=== PATIENT | male | born 1960 | race African-American/Black ===

== ENCOUNTER → 2018-09-24 | Outpatient (CLI) | payer BC, OTHER ==
[2014-10-17 18:42] VITALS: BP 158/77
--- NOTE | 2018-09-24 16:42 | RAD ---
Indication:RT TESTICLE ENLARGEMENT TECHNIQUE: Grayscale, color Doppler and spectral waveform is of the testicles obtained. COMPARISON:None FINDINGS: The right testicle measures 4.0 x 2.5 x 2.3 cm and is homogeneous in echogenicity without focal lesion. The right testicle demonstrates evidence of blood flow. The epididymis is within normal limits. Varicoceles are seen. The left testicle measures 4.0 x 2.6 x 2.5 cm and is homogeneous in echogenicity without focal lesion. The left testicle demonstrates evidence of blood flow. Epididymis within normal limits. Small bilateral hydroceles. IMPRESSION: IMPRESSION: 1. Bilateral testicles demonstrate evidence of blood flow without focal testicular lesion. 2. Right-sided varicoceles. 3. Small bilateral hydroceles, right greater than left. Electronically signed by: Gustabo Birch DO (09/24/2018 4:39 PM) [facility]
== END | disposition home or self-care (01) ==
LOC: US 15:52
PROVIDERS: ATTEND Internal Medicine
DX: N43.3 Hydrocele, unspecified (principal); I86.1 Scrotal varices; E11.42 Type 2 diabetes mellitus with diabetic polyneuropathy
CPT/HCPCS: 76870

== ENCOUNTER 2019-05-30 18:43 | Emergency (ER) | payer BC, MEDICAID ==
[~2019-05-30] VITALS: Ht 175.3 cm; Wt 136.1 kg
--- NOTE | 2019-05-30 19:48 | PHYS DOC ---
Past Medical History Past Medical History: Diabetes-Type II, Diverticulitis, Diverticulosis, High Cholesterol, Hypertension, Other Additional Past Medical Histor: OBESE Past Surgical History: Knee Replacement, Other Additional Past Surgical Histo: BILAT KNEE, COLOSTOMY W/ TAKEDOWN Alcohol Use: None Drug Use: None Adult General Chief Complaint Chief Complaint: LOWER EXTREMITY SWELLING HPI HPI 58-year-old male presents to the emergency room complaints of right lower extremity wound. Patient is an known diabetic, hypertensive with previous history of right lower extremity wound receiving wound care as an outpatient with subsequently improved. He states approximately 1 week ago he went to get a pedicure and the skin was rubbed off to the back of his leg he's noticed some weeping from the ulceration patient denies any fevers. He denies any chest pain, shortness breath, nausea, vomiting, abdominal pain. He called his primary care office the nursing office told him he needed to come to the hospital for further evaluation before they would send home health out. Review of Systems Review of Systems Constitutional: Denies fever or chills [] Respiratory: Denies cough or shortness of breath [] Cardiovascular: No additional information not addressed in HPI [] GI: Denies abdominal pain, nausea, vomiting, bloody stools or diarrhea [] Musculoskeletal: Denies back pain or joint pain [] Integument: Tenderness centimeter laceration appreciated to back of right calf, yellow drainage appreciated. Neurologic: Denies headache, focal weakness or sensory changes [] All other systems were reviewed and found to be within normal limits, except as documented in this note. Allergies Allergies Allergies Coded Allergies Type Severity Reaction Last Updated Verified No Known Drug Allergies 10/17/14 No Physical Exam Physical Exam Constitutional: Well developed, well nourished, no acute distress, non-toxic appearance. [] HENT: Normocephalic, atraumatic, bilateral external ears normal, oropharynx moist, no oral exudates, nose normal. [] Eyes: PERRLA, EOMI, conjunctiva normal, no discharge. [] Cardiovascular:Heart rate regular rhythm, no murmur [] Lungs & Thorax: Bilateral breath sounds clear to auscultation [] Abdomen: Bowel sounds normal, soft, no tenderness, no masses, no pulsatile masses. [] Skin: 2.5 cm ulceration appreciated to back of right calf, minimal yellow drainage appreciated, chronic lower extremity edema with chronic venous stasis changes Back: No tenderness, no CVA tenderness. [] Extremities: Chronic lower extremity edema, chronic venous stasis changes, ulceration as described above.[] Neurologic: Alert and oriented X 3, no focal deficits noted. [] Psychologic: Affect normal, judgement normal, mood normal. [] Current Patient Data Vital Signs Vital Signs Date Time Temp Pulse Resp B/P (MAP) Pulse Ox O2 Delivery O2 Flow Rate FiO2 05/30/19 19:35 98.0 87 20 152/85 (107) 91 Room Air 98.0 Lab Values Laboratory Tests Test 05/30/19 19:52 White Blood Count 10.3 x10^3/uL (4.0-11.0) Red Blood Count 4.60 x10^6/uL (4.30-5.70) Hemoglobin 12.6 g/dL (13.0-17.5) L Hematocrit 38.3 % (39.0-53.0) L Mean Corpuscular Volume 83 fL (79-100) Mean Corpuscular Hemoglobin 27 pg (25-35) Mean Corpuscular Hemoglobin Concent 33 g/dL (31-37) Red Cell Distribution Width 15.5 % (11.5-14.5) H Platelet Count 276 x10^3/uL (140-400) Neutrophils (%) (Auto) 68 % (31-73) Lymphocytes (%) (Auto) 20 % (24-48) L Monocytes (%) (Auto) 8 % (0-9) Eosinophils (%) (Auto) 4 % (0-3) H Basophils (%) (Auto) 1 % (0-3) Neutrophils # (Auto) 7.0 x10^3/uL (1.8-7.7) Lymphocytes # (Auto) 2.0 x10^3/uL (1.0-4.8) Monocytes # (Auto) 0.8 x10^3/uL (0.0-1.1) Eosinophils # (Auto) 0.4 x10^3/uL (0.0-0.7) Basophils # (Auto) 0.1 x10^3/uL (0.0-0.2) Sodium Level 143 mmol/L (136-145) Potassium Level 3.9 mmol/L (3.5-5.1) Chloride Level 104 mmol/L (98-107) Carbon Dioxide Level 33 mmol/L (21-32) H Anion Gap 6 (6-14) Blood Urea Nitrogen 22 mg/dL (8-26) Creatinine 2.5 mg/dL (0.7-1.3) H Estimated GFR (Cockcroft-Gault) 32.0 BUN/Creatinine Ratio 9 (6-20) Glucose Level 125 mg/dL (70-99) H Calcium Level 8.8 mg/dL (8.5-10.1) Total Bilirubin 0.3 mg/dL (0.2-1.0) Aspartate Amino Transferase (AST) 17 U/L (15-37) Alanine Aminotransferase (ALT) 18 U/L (16-63) Alkaline Phosphatase 118 U/L (46-116) H Total Protein 8.8 g/dL (6.4-8.2) H Albumin 3.1 g/dL (3.4-5.0) L Albumin/Globulin Ratio 0.5 (1.0-1.7) L Laboratory Tests 05/30/19 19:52 Laboratory Tests 05/30/19 19:52 EKG EKG [] Radiology/Procedures Radiology/Procedures [] Course & Med Decision Making Course & Med Decision Making Pertinent Labs and Imaging studies reviewed. (See chart for details) []58-year-old male presents to the emergency room complaints of right lower extremity wound. Patient is an known diabetic, hypertensive with previous history of right lower extremity wound receiving wound care as an outpatient with subsequently improved. He states approximately 1 week ago he went to get a pedicure and the skin was rubbed off to the back of his leg he's noticed some weeping from the ulceration patient denies any fevers. He denies any chest pain, shortness breath, nausea, vomiting, abdominal pain. He called his primary care office the nursing office told him he needed to come to the hospital for further evaluation before they would send home health out. Laboratory values reviewed creatinine mildly elevated at 2.5 no previous findings in the computer system. His BUN within normal limits. Patient likely has underlying chronic kidney disease given his history of hyper tension, hyperlipidemia, diabetes - potassium normal Ulceration appreciated to right lower extremity is noninfectious at this time, dressing reapplied in the emergency department will plan for home health will need to follow up primary care physician as discussed below Plan discharge home and follow up with PCP as outpatient as scheduled Discussed return precautions Patient will need to contact PCP for home health referral Rodney Disclaimer Dragon Disclaimer This electronic medical record was generated, in whole or in part, using a voice recognition dictation system. Departure Departure Impression: Primary Impression: Bilateral lower extremity edema Additional Impression: Ulcer of lower extremity Referrals: KAREN YOST MD (PCP) Patient Instructions: Edema, [id number] Additional Instructions: Recommend follow up with PCP 3 - 5 days Return to the ER with worsening symptoms, intractable pain, fever, altered mental status Tylenol/Motrin as needed for pain No evidence of infectious process, recommend no abx at this time Recommend following up with PCP regarding home health need for wound care Problem Qualifiers Additional Impression: Ulcer of lower extremity Laterality: right Non-pressure ulcer stage: limited to breakdown of skin Qualified Codes: L97.911 - Non-pressure chronic ulcer of unspecified part of right lower leg limited to breakdown of skin TOVA CANTU MD May 30, 2019 19:48
[2019-05-30 20:05] LABS: BASO # 0.1 x10^3/uL (0.0-0.2); BASO % 1 % (0-3); EOS # 0.4 x10^3/uL (0.0-0.7); EOS % 4 % (0-3); HEMATOCRIT 38.3 % (39.0-53.0); HEMOGLOBIN 12.6 g/dL (13.0-17.5); LYMPH % 20 % (24-48); MEAN CORPUSCULAR HEMOGLOBIN 27 pg (25-35); MEAN CORPUSCULAR HGB CONC 33 g/dL (31-37); MEAN CORPUSCULAR VOLUME 83 fL (79-100); MONO # 0.8 x10^3/uL (0.0-1.1); MONO % 8 % (0-9); NEUT % 68 % (31-73); PLATELET COUNT 276 x10^3/uL (140-400); RED CELL DISTRIBUTION WIDTH 15.5 % (11.5-14.5); WHITE BLOOD COUNT 10.3 x10^3/uL (4.0-11.0)
[2019-05-30 20:12] LABS: CALCIUM 8.8 mg/dL (8.5-10.1); CREATININE 2.5 mg/dL (0.7-1.3); POTASSIUM 3.9 mmol/L (3.5-5.1)
[2019-05-30 20:19] LABS: ALBUMIN 3.1 g/dL (3.4-5.0); ALBUMIN/GLOBULIN RATIO 0.5 (1.0-1.7); TOTAL BILIRUBIN 0.3 mg/dL (0.2-1.0); TOTAL PROTEIN 8.8 g/dL (6.4-8.2)
[2019-05-30 21:06] VITALS: BP 192/110
== END 2019-05-30 21:07 | disposition home or self-care (01) ==
LOC: ER 18:43
DX: E11.622 Type 2 diabetes mellitus with other skin ulcer (principal); L97.211 Non-pressure chronic ulcer of right calf limited to breakdown of skin; R60.0 Localized edema; E78.00 Pure hypercholesterolemia, unspecified; I10 Essential (primary) hypertension; E66.9 Obesity, unspecified; Z68.41 Body mass index [BMI] 40.0-44.9, adult; Z96.653 Presence of artificial knee joint, bilateral; Z93.3 Colostomy status
CPT/HCPCS: 36415; 80053; 85025; 99284

== ENCOUNTER → 2019-08-18 | Day surgery (SDC) | payer BC, MEDICAID ==
[~2019-08-18] MED LIST: AMLO10TA4 PO; ATOR40TA59 PO; CETI10TA24 PO; FURO-68 PO; GABA800T5 PO; HYDR-2765 PO; INSU100V31 SQ; INSU300I SQ; IV RINGERS,LACTATED 1000ML 1,000 ML IV ONE; LOSA100T14 PO; METO25TA4 PO; POTA10TA12 PO; PROPOFOL 40 ML IV ONE
--- NOTE | 2019-08-18 12:38 | NUR ---
PT HERE IN [facility] FOR COLONOSCOPY. PT SOB ON EXERTION AND NOTED TO HAVE EXPIRATORY WHEEZES ANTERIOR UPPER LOBES MARTHA. SPITTING CLEAR SECRETIONS IN [place]. HE STATED HE IS RECOVERING FROM A COLD THIS LAST WEEK. ANESTHESIA, DR LEPE, NOTIFIED AND NO NEW ORDERS.
--- NOTE | 2019-08-18 13:43 | PDOC4 ---
PROCEDURE Procedure Colonoscopy/multiple polypectomies. Indication: screening Meds: per anesthesia. Findings; OSVALDO normal. --'Scope advanced to cecum. Foreshortened colon from surgery. Mucosa normal. Scattered diverticula from mid-transverse distally. Anastomosis distal sigmoid. --5 semipedunculated polyps, 8-10 mm, from ascending to descending. All snared. Sj. well. IMP: multiple polyps diverticulosis S/p proximal sigmoid resection REC: No ASA, NSAIDS for 2 weeks. Await path. Resume other meds and diet. F/u with me in 2 weeks. Repeat exam in 5 years. TERESA COLES MD Aug 18, 2019 13:43
[2019-08-18 14:02] VITALS: BP 161/92
--- NOTE | 2019-08-20 20:06 | PATHOLOGY ---
[facility] Accession Number: [id number] . 01 Material submitted: . PART A: colon - PROXIMAL ASCENDING COLON POLYP. Modifiers: proximal, ascending PART B: colon - TRANSVERSE COLON POLYP X2. Modifiers: transverse PART C: colon - DESCENDING COLON POLYP X2. Modifiers: descending . 01 Clinical history: . Screening . 02 Diagnosis: A. Colon biopsy, proximal ascending colon polyp: - Tubular adenoma. . B. Colon biopsies, transverse colon polyps x2: - Tubular adenomas (2). . C. Colon biopsies, descending colon polyps x2: - Tubular adenomas (2). . (VERONICAM:spencer; 08/20/2019) [facility] 08/20/2019 [address] [facility] . 02 Comment: There is no high-grade dysplasia or evidence of malignancy. (VERONICAM:spencer; 08/20/2019) . 02 Electronically signed: . Eben Dowell MD, Pathologist NPI- [id number] . 01 Gross description: . A. The specimen is received in formalin, labeled "Tonny Bridges, proximal ascending colon polyp BX" and consists of a polypoid segment of olmos-brown tissue measuring 1.3 x 1.2 x 1.1 cm. The margin is inked black. It is serially sectioned and entirely submitted in A1. . B. The specimen is received in formalin, labeled "Cyrus, Tonny, transverse colon polyp x2" and consists of 2 polypoid segments of olmos-brown tissue measuring 1.2 x 1.2 x 1.0 cm and 1.0 x 0.8 x 0.7 cm. One margin is inked black and the other blue. They are sectioned and entirely submitted in B1-B2. . C. The specimen is received in formalin, labeled "Cyrus, Tonny, descending colon polyp x2" and consists of 4 fragments of pink-olmos tissue measuring between 0.5 x 0.4 cm and 0.7 x 0.6 cm which are entirely submitted in C1. Also received are 2 polypoid segments of olmos-brown tissue measuring 0.8 x 0.7 x 0.6 cm and 0.8 x 0.8 x 0.5 cm. The margins are inked black. They are sectioned and entirely submitted in C2. (SDY; 08/19/2019) SYU/SYU 08/19/2019 1729 Local . 02 Pathologist provided ICD-10: D12.2, D12.3, D12.4 . 02 CPT . 754504, 041855, 119481 Specimen Comment: A courtesy copy of this report has been sent to [phone] Specimen Comment: Report sent to DR YOST Performed at: 01 [facility] [address] [facility] [address], [place] [id number] MD Keshav Leggett MD Phone: [phone] Performed at: 02 [facility] [address] [place], [place] [id number] MD Eben Dowell MD Phone: [phone]
== END | disposition home or self-care (01) ==
LOC: ENDOS 11:57
PROVIDERS: ATTEND Internal Medicine Gastroenterology
DX: Z12.11 Encounter for screening for malignant neoplasm of colon (principal); D12.2 Benign neoplasm of ascending colon; D12.4 Benign neoplasm of descending colon; D12.3 Benign neoplasm of transverse colon; K57.30 Diverticulosis of large intestine without perforation or abscess without bleeding; E66.9 Obesity, unspecified; I12.9 Hypertensive chronic kidney disease with stage 1 through stage 4 chronic kidney disease, or unspecified chronic kidney disease; E11.22 Type 2 diabetes mellitus with diabetic chronic kidney disease; N18.9 Chronic kidney disease, unspecified; I25.10 Atherosclerotic heart disease of native coronary artery without angina pectoris; Z98.890 Other specified postprocedural states; Z68.45 Body mass index [BMI] 70 or greater, adult; Z79.899 Other long term (current) drug therapy; Z90.49 Acquired absence of other specified parts of digestive tract
CPT/HCPCS: 45385; 88305; J2704